=== PATIENT | female | born 1995 | race Caucasian/White ===

== ENCOUNTER 2024-11-07 09:55 | Emergency (ER) | payer OTHER, SELFPAY ==
[2024-11-07 09:57] VITALS: BP 174/97; PULSE 90; RESP 16; TEMP 36.6; O2SAT 100
--- NOTE | 2024-11-07 10:15 | RAD_ITS ---
STUDY: X-RAY - LEFT HUMERUS REASON FOR EXAM: Female, 29 years old. R/O BROKEN CONTROL TECHNIQUE: 2 views of the left humerus. COMPARISON: None. FINDINGS: Normal visualized humerus. There is no demonstrated fracture or osseous destructive process. There is a catheter tube measuring 4.7 cm in length in the posterior medial subcutaneous fat of the upper arm. RAD/Humerus min 2 Views IMPRESSION: Catheter tube measuring 4.7 cm in length in the posterior medial subcutaneous fat of the upper arm. Electronically Signed: Pedro Del Angel MD at 10:28 EST ,
--- NOTE | 2024-11-07 10:42 | EDS_ITS ---
HPI History of Present Illness HPI Narrative: Patient presents with pain to her left upper arm that occurred yesterday. Patient states she was helping people move and hit her upper arm on the corner of a counter. Patient states it is over the area where her control implant is. Patient states she has been taking ibuprofen which has been helping. Patient describes the pain as sharp. Patient denies any paresthesias or weakness. Patient denies any other injuries. Patient states she is concerned that the implant broke. Chief Complaint: Upper Extremity Injury Informant: patient Occured/Mechanism Mechanism/Context: Yes blunt trauma Onset/Context/Timing Onset: Yesterday Context: Sudden Onset Timing: Continuous Quality of Pain: Sharp Location: Medial left upper arm Worsened by: Nothing Relieved by: Ibuprofen Associated Symptoms Associated Symptoms: Negative for Parasthesia, Weakness or Loss of Funtion PFSH PFSH Medical History no medical history no medical history Allergy/AdvReac Type Severity Reaction Status Date / Time bee venom protein (honey Allergy Severe Swelling Verified 11/07/24 10:00 bee) (bees) Penicillins Allergy Severe Anaphylaxis Verified 11/07/24 10:00 Surgical History no surgical history no surgical history Social History (Updated 11/07/24 @ 10:[address] Tez Zuniga, DO) Smoking Status: Current every day smoker tobacco type: cigarettes Electronic Cigarette Use: with nicotine ROS ROS ED Constitutional Constitutional ED: Denies chills or fever(s) Eyes Eyes: Denies blurry vision or change in vision ENT ENT ED: Denies rhinorrhea or sore throat Cardiovascular Cardiovascular: Denies chest pain or palpitations Respiratory/Chest Respiratory/Chest: Denies cough or dyspnea Gastrointestinal Gastrointestinal: Reports nausea; Denies vomiting Genitourinary Genitourinary ED: Denies dysuria or hematuria Musculoskeletal Musculoskeletal: Denies back pain or neck pain Integumentary Denies abscess or rash Neurologic Neurologic: Reports headache(s); Denies weakness Allergic/Immunologic Allergic/Immunologic ED: Denies mouth swelling or urticaria EXAM Physical Exam Const Vital Signs: 11/07/24 09:57 Temperature 97.9 F Temperature Source Temporal Pulse Rate 90 Respiratory Rate 16 Blood Pressure 174/97 H Blood Pressure Mean 122 Pulse Ox 100 Oxygen Delivery Method Room Air Positive well nourished and well developed General Appearance ED: well developed and NAD HEENT Reports moist mucous membranes normocephalic and atraumatic Neck full ROM and supple Extremity Extremity Narrative: There is mild tenderness of the medial aspect of the left upper arm. There is no ecchymosis noted. There is no bony crepitance or step-off. There is no deformity noted. There is good range of motion of the left elbow and left shoulder. Radial pulses are equal bilaterally. Strength is 5/5 in the radial, median, and ulnar areas. Sensation is intact to light touch in the radial, median, and ulnar areas. Neuro oriented x3, CN's II-XII intact bilaterally, moves all extremities, no focal motor deficits and no sensory deficits noted Sensorium / Orientation: alert Motor Exam: strength 5/5 throughout Psych mental status grossly normal MDM MDM MDM Narrative Medical decision making narrative: Differential diagnose includes fracture, and contusion. X-rays of the left upper arm will be obtained to assess for fracture. Radiography Diagnostic Testing: Clinical Impression(s) from Imaging Studies Humerus X-Ray 11/07/24 10:15 IMPRESSION: Catheter tube measuring 4.7 cm in length in the posterior medial subcutaneous fat of the upper arm. Electronically Signed: Pedro Del Angel MD at 10:28 EST , X-rays of the left upper arm were obtained. There are 2 views. On my independent interpretation, there is no acute fracture noted. The control implant is intact. Radiologist also interpreted the x-rays and agrees. Treatment and Re-Evaluation Narrative: Patient was advised of her findings. Patient was instructed to continue using ibuprofen as needed for pain. Patient was instructed to follow-up with her primary care physician in 5 to 7 days. Patient was also instructed to follow-up with her [employer] if she would want to have her control device removed. Patient understood and was agreeable with the plan. All questions were answered. Discharge Plan Triage Chief Complaint: Upper Extremity Injury ED Provider: Tez Zuniga Dx/Rx/DC Orders Clinical Impression: Contusion of arm, left Instructions: ED Contusion, Upper Extremity Primary Care Provider: Care Physician,No Primary Referrals: Care Physician,No Primary [Primary Care Provider] - Print Language: [place] Disposition Disposition: Home, Self Care
[2024-11-07 11:00] VITALS: BP 127/69; PULSE 71; RESP 15; TEMP 36.7; O2SAT 97
== END 2024-11-07 11:00 | disposition home or self-care (01) ==
PROVIDERS: Emergency Provider Emergency Medicine; Visit Provider Emergency Medicine
DX: S40.022A Contusion of left upper arm, initial encounter (principal); W22.03XA Walked into furniture, initial encounter; Z88.0 Allergy status to penicillin; F17.210 Nicotine dependence, cigarettes, uncomplicated; Z97.5 Presence of (intrauterine) contraceptive device
CPT/HCPCS: 73060; 99282